=== PATIENT | male | born 1990 | race Hispanic/Latino ===

== ENCOUNTER 2022-04-01 12:05 | Emergency (ER) | payer OTHER ==
[~2022-04-01] VITALS: Ht 185.4 cm; Wt 83.5 kg
[2022-04-01] MEDS ORDERED: KETOROLAC 60 MG VIAL (30MG/ML) IM ONE (12:30)
[2022-04-01] MEDS ORDERED: NAPR-1180 PO (13:17)
[2022-04-01 13:23] VITALS: BP 155/89
== END 2022-04-01 13:31 | disposition home or self-care (01) ==
LOC: EDH 12:05
DX: S43.52XA Sprain of left acromioclavicular joint, initial encounter (principal); X58.XXXA Exposure to other specified factors, initial encounter; Y93.89 Activity, other specified; Y92.89 Other specified places as the place of occurrence of the external cause; Y99.8 Other external cause status
CPT/HCPCS: 73030; 96372; 99283; J1885